=== PATIENT | male | born 1990 | race Caucasian/White ===

== ENCOUNTER 2017-06-22 22:49 | Emergency (ER) | payer SELFPAY ==
[2017-06-22] MEDS ORDERED: Lidocaine 2% Viscous Solution 15 ML Cup PO ONE (23:15)
--- NOTE | 2017-06-22 23:17 | EDM.PDOC ---
ED HPI GENERAL MEDICAL PROBLEM - General Chief Complaint: ENT Problem Stated Complaint: SORE THROAT Time Seen by Provider: 06/22/17 23:10 - History of Present Illness INITIAL COMMENTS - FREE TEXT/NARRATIVE: HISTORY AND PHYSICAL: History of present illness: The patient is a 26-year-old male who states that he has a two-week history of a sore throat which initially started in the right side and now is more on the left side and is not associated with fevers or chills but he has had decreased by mouth intake because the discomfort. He has not had a cough but now he says the pain is going to his left ear. He did 2 problems. Review of systems: As per history of present illness and below otherwise all systems reviewed and negative. Past medical history: As per history of present illness and as reviewed below otherwise noncontributory. Surgical history: As per history of present illness and as reviewed below otherwise noncontributory. Social history: No reported history of drug or alcohol abuse. Family history: As per history of present illness and as reviewed below otherwise noncontributory. Physical exam: Gen.: Well-developed well-nourished man who is not very forthcoming in answering questions or cooperative with exam. [place]'s been reviewed by me HEENT: Atraumatic, normocephalic, pupils reactive, negative for conjunctival pallor or scleral icterus, mucous membranes moist, throat clear of exudates but tonsils are enlarged bilaterally but are not quite kissing and they are very erythematous, there is anterior cervical adenopathy but no nuchal rigidity, neck supple, nontender, trachea midline. Lungs: Clear to auscultation, breath sounds equal bilaterally, chest nontender. No wheezing or stridor Heart: S1S2, regular rate and rhythm no overt murmurs Abdomen: Soft, nondistended, nontender. NABS Pelvis: Deferred Genitourinary: Deferred. Rectal: Deferred. Extremities: Atraumatic, negative for cords or calf pain. Neurovascular unremarkable. Neuro: Awake, alert, oriented. Cranial nerves II through XII unremarkable. Cerebellum unremarkable. Motor and sensory unremarkable throughout. Exam nonfocal. Diagnostics: Rapid strep influenza Therapeutics: Viscous lidocaine Decadron Impression: Tonsillitis Definitive disposition and diagnosis as appropriate pending reevaluation and review of above. left throat Pain Score (Numeric/FACES): 10 - Related Data Allergies Allergy/AdvReac Type Severity Reaction Status Date / Time No Known Allergies Allergy Verified 06/22/17 23:05 Home Meds: Home Meds . [No Known Home Meds] 06/22/17 [History] ED ROS GENERAL - Review of Systems Review Of Systems: ROS reveals no pertinent complaints other than HPI. ED EXAM, GENERAL - Physical Exam Exam: See Below (The dictation) Course - Vital Signs Last Recorded V/S: Last Vital Signs Temp 36.3 C 06/22/17 22:59 Pulse 80 06/22/17 22:59 Resp 17 06/22/17 22:59 BP 124/88 06/22/17 22:59 Pulse Ox 95 06/22/17 22:59 - Orders/Labs/Meds Orders: Active Orders 24 hr Category Date Time Status CULTURE STREP A CONFIRMATION [] Stat Lab 06/22/17 23:01 Results STREP SCRN A RAPID W CULT CONF [] Stat Lab 06/22/17 23:01 Results Dexamethasone Med 06/23/17 00:01 Once 10 mg IM ONETIME ONE Meds: Medications Discontinued Medications Generic Name Dose Route Start Last Admin Trade Name Joseq PRN Reason Stop Dose Admin Lidocaine HCl 15 ml 06/22/17 23:15 06/22/17 23:29 Xylocaine 2% Viscous PO 06/22/17 23:16 15 ml ONETIME ONE Administration Departure - Departure Time of Disposition: 00:02 Disposition: Home, Self-Care 01 Condition: Good Clinical Impression: Tonsillitis - Discharge Information Referrals: PCP,None [Primary Care Provider] - Forms: ED Department Discharge Additional Instructions: The following information is given to patients seen in the emergency department who are being discharged to home. This information is to outline your options for follow-up care. We provide all patients seen in our emergency department with a follow-up referral. The need for follow-up, as well as the timing and circumstances, are variable depending upon the specifics of your emergency department visit. If you don't have a primary care physician on staff, we will provide you with a referral. We always advise you to contact your personal physician following an emergency department visit to inform them of the circumstance of the visit and for follow-up with them and/or the need for any referrals to a consulting specialist. The emergency department will also refer you to a specialist when appropriate. This referral assures that you have the opportunity for followup care with a specialist. All of these measure are taken in an effort to provide you with optimal care, which includes your followup. Under all circumstances we always encourage you to contact your private physician who remains a resource for coordinating your care. When calling for followup care, please make the office aware that this follow-up is from your recent emergency room visit. If for any reason you are refused follow-up, please contact the [facility] emergency department at and ask to speak to the emergency department charge nurse. [facility] Primary care- [place] [address] Hydration and eat soft foods. Use the viscous lidocaine you have been given for some pain relief and use [id number] Tylenol and ibuprofen for pain and fevers. Please take antibiotics as prescribed, amoxicillin, from [facility] as well as use Tylenol with codeine elixir for sleep time for pain. Please call and follow-up with one of our providers in the clinic and return to ER as needed and as discussed - My Orders Last 24 Hours: My Active Orders 06/22/17 23:01 CULTURE STREP A CONFIRMATION [RM] Stat STREP SCRN A RAPID W CULT CONF [RM] Stat 06/23/17 00:01 Dexamethasone 10 mg IM ONETIME ONE - Assessment/Plan Last 24 Hours: My Active Orders 06/22/17 23:01 CULTURE STREP A CONFIRMATION [RM] Stat STREP SCRN A RAPID W CULT CONF [RM] Stat 06/23/17 00:01 Dexamethasone 10 mg IM ONETIME ONE
[2017-06-23] MEDS ORDERED: Dexamethasone 10 MG/ML SDV IM ONE (00:01)
== END 2017-06-23 00:20 | disposition home or self-care (01) ==
LOC: MW.ED 22:49
DX: J03.90 Acute tonsillitis, unspecified (principal)
CPT/HCPCS: 87081; 87804; 87880; 99283; A9270